=== PATIENT | male | born 1995 | race Caucasian/White ===

== ENCOUNTER 2018-12-28 12:59 | Emergency (ER) | payer SELFPAY ==
[~2018-12-28] VITALS: Ht 172.7 cm; Wt 108.9 kg
[2018-12-28 13:05] VITALS: Ht 172.7 cm; Wt 108.9 kg
[2018-12-28 16:30] VITALS: BP 110/80
== END 2018-12-28 16:30 | disposition home or self-care (01) ==
LOC: ED 12:59
DX: F12.929 Cannabis use, unspecified with intoxication, unspecified (principal); R03.0 Elevated blood-pressure reading, without diagnosis of hypertension
CPT/HCPCS: J2060; J2405